=== PATIENT | female | born 1940 ===

== ENCOUNTER 2018-03-21 15:22 | Outpatient (CLI) | payer OTHER | END 2018-03-21 15:39 | disposition short-term general hospital (02) | LOC: AMBL 15:22 | PROVIDERS: ATTEND Internal Medicine | DX: R06.02 Shortness of breath (principal); R05 Cough; R09.89 Other specified symptoms and signs involving the circulatory and respiratory systems; R11.0 Nausea; F41.9 Anxiety disorder, unspecified; I44.7 Left bundle-branch block, unspecified ==

== ENCOUNTER 2018-06-01 07:56 | Outpatient (CLI) | END 2018-06-01 08:08 | disposition short-term general hospital (02) | LOC: AMBL 07:56 | PROVIDERS: ATTEND Family Medicine | DX: R41.82 Altered mental status, unspecified (principal) ==

== ENCOUNTER 2018-06-12 14:55 | Outpatient (CLI) | payer OTHER | END 2018-06-12 15:08 | disposition short-term general hospital (02) | LOC: AMBL 14:55 | PROVIDERS: ATTEND Emergency Medicine | DX: R45.6 Violent behavior (principal) ==

== ENCOUNTER 2018-07-13 12:56 | Outpatient (CLI) | payer OTHER | END 2018-07-13 13:18 | disposition short-term general hospital (02) | LOC: AMBL 12:56 | PROVIDERS: ATTEND Emergency Medicine | DX: R40.4 Transient alteration of awareness (principal); R60.0 Localized edema ==

== ENCOUNTER 2018-07-22 18:48 | Outpatient (CLI) | END 2018-07-22 19:05 | disposition short-term general hospital (02) | LOC: AMBL 18:48 | PROVIDERS: ATTEND Internal Medicine | DX: R07.9 Chest pain, unspecified (principal) ==

== ENCOUNTER 2018-07-29 11:00 | Outpatient (CLI) | payer OTHER | END 2018-07-29 11:22 | disposition short-term general hospital (02) | LOC: AMBL 11:00 | PROVIDERS: ATTEND Emergency Medicine | DX: R41.82 Altered mental status, unspecified (principal); R40.4 Transient alteration of awareness; I25.2 Old myocardial infarction; Z86.73 Personal history of transient ischemic attack (TIA), and cerebral infarction without residual deficits ==

== ENCOUNTER 2018-08-14 17:28 | Outpatient (CLI) | END 2018-08-14 17:49 | disposition short-term general hospital (02) | LOC: AMBL 17:28 | PROVIDERS: ATTEND Emergency Medicine | DX: S09.93XA Unspecified injury of face, initial encounter (principal); S00.31XA Abrasion of nose, initial encounter; S00.33XA Contusion of nose, initial encounter; W19.XXXA Unspecified fall, initial encounter ==

== ENCOUNTER 2018-10-26 10:00 | Outpatient (RCR) | payer OTHER ==
[2018-09-05 02:23] VITALS: BMI 21.4
--- NOTE | 2018-10-23 08:48 | RS.OPPTEV2 ---
Date of Note: 10/22/18 Visit #: 1 Number of visits approved by Insurance: n/a Date of Evaluation: 10/22/18 Payer Source: MEDICARE Surgery Performed?: No Treatment Diagnosis: gait difficulty, balance impaired, muscle weakness History of Condition/Mechanism of Injury:: pt recently dc from [facility] for rehab as well as received home health PT and was dc from home health last week. Prior Level of Function.....Patient was independent with: Ambulation/Mobility Level of Function: pt has had 24 hour caregivers since 02/2018. pt required assist with ADL's and supervision for amb prior to recent sn[facility] stay. Functional Limitations: Standing, Bending, Squatting, Ambulation, Community Access/Integration Current Subjective/complaints:: pt's caregiver states that pt requires assist with bathing and supervision with amb. Reports pt has not had a recent fall. Treatment Side (optional): N/A *Precautions: fall precautions Medical History Medical History: Hypertension Surgical History: Cholecystectomy, CABG Hx Home Medications: aspirin, atorvastatin, bisacodyl, clopidogrel, dicyclomine , donepezil, ferrous sulfate, furosemide, haloperidol, lisinopril, lorazepam, memantine, metoprolol tartrate, mirtazapine, nitroglycerin, omeprazole, potassium, quetiapine, revastigmine, sucralfate, trazodone, vit d Patient's Goals: be stronger Functional Outcome Measure Tinetti: 11 - G Codes & Severity Modifier G Codes & Modifier: n/a Source of G Code score: n/a Observation - Observation Inspection: pt with swelling L hand as well as L hand cool to touch. Arthritic deformities B hands. Pitting edema BLE Posture: Forward Head, Rounded Shoulders, Increased Thoracic Kyphosis Handedness: Right Gait - Gait Pattern General Gait Pattern Observation: Crouched Gait, Shuffling Step, Decrease Stride Lngth (R), Decrease Stride Lngth (L) Gait Comments: pt amb with rollator rwx with flexed posture, decreased step length as well as occasional shuffling gait. pt requires CGA to min to sit to stand from chair General Range of Motion: RUE WFL's, LUE shld flex limited otherwise WFL's. BLE WFL's Muscle Strength: RUE grossly 4/5, LUE shld flex 3-/5, elbow flex/ext 4/5. BLE hip flex 4-/5, knee flex/ext 4/5, ankle DF/PF 4/5 Sensation - Sensation Right Upper Extremity: Intact/Normal Left Upper Extremity: Intact/Normal Right Lower Extremity: Intact/Normal Left Lower Extremity: Intact/Normal Balance - Sitting Balance Static Sitting Balance: Good Dynamic Sitting Balance: Good - Standing Balance Static Standing Balance: Poor Dynamic Standing Balance: Poor - Comments Balance Assessment Comments: Tinetti balance score 01/24 consistent with high risk of falls. Gait speed: 0.46 consistent with limited community ambulator Interventions - Exercise/Activities/Manual Therapy Exercises/Activities: pt performed : isometric hip add, bridging, resisted hip abd with green theraband, Ankle DF/PF with green theraband, LAQ, scapular retraction w green theraband Manual Therapy: n/a HOME EXERCISE PROGRAM: pt given written HEP including: DF/PF w green theraband, resisted hip abd w green theraband, isometric hip add, scapular retraction w green theraband - Charges Timed Code Treatment Minutes: 51 Total Treatment Time: 57 Procedures billed for this date of service:: fern low, ex EVALUATION COMPLEXITY LEVEL EVALUATION COMPLEXITY LEVEL: HISTORY: Low, EXAM OF BODY SYSTEMS: Low, CLINICAL PRESENTATION: Low, CLINICAL DECISION MAKING: Low Assessment Assessment: pt presents with decreased strength, balance as well as gait difficulty. pt presents with cognitive deficits alert and oriented to person and place. Feel pt would benefit from skilled PT for therex for strengthening, balance as well as gait training to improve functional mobility and decrease risk of falls. Patient Education: Home Exercise Program, Education of Plan of Care Rehab Potential: Good Short Term Goals Goal #1: pt/caregiver independent with initial HEP Goal to be met by: 11/09/18 Goal #2: pt transfer sit to/from stand from chair SBA Goal to be met by: 11/09/18 Goal #3: Improve dyn stand balance as noted by tinetti score of Goal to be met by: 11/09/18 Goal #4: pt amb with rollator rwx with no LOB with improved posture. Goal to be met by: 11/09/18 [facility] Goals Goal #1: Improved gait speed 0.8 meters/sec to be consistent w community ambulator Goal to be met by: 11/30/18 Goal #2: Improved dyn stand balance as noted by tinetti score Goal to be met by: 11/30/18 Goal #3: Improve BLE strength 4 to 4+/5 Goal to be met by: 11/30/18 Goal #4: pt able to amb community distances w rollator w no LOB SBA Goal to be met by: 11/30/18 Plan - Treatment to be Provided Procedures: Therapeutic Exercises, Therapeutic Activity, Gait Training, Patient Education Modalities: No Modalities - Treatment Plan Frequency: 2-3x a week Duration: 6 weeks Dates of Electrophysiology Scientist Goals: 11/30/18 Expiration date of current Insurance Approval:: n/a - Treatment Code (1) Impairment of balance Code(s): R26.89 - OTHER ABNORMALITIES OF GAIT AND MOBILITY (2) Gait difficulty Code(s): R26.9 - UNSPECIFIED ABNORMALITIES OF GAIT AND MOBILITY (3) Muscle weakness Code(s): M62.81 - MUSCLE WEAKNESS (GENERALIZED)
--- NOTE | 2018-10-26 09:33 | RS.OPPTDN ---
Subjective Date of Note: 10/24/18 Visit #: 2 Number of visits approved by Insurance: Reassess at 10 Date of Evaluation: 10/22/18 Payer Source: MEDICARE Treatment Diagnosis: gait difficulty, balance impaired, muscle weakness Current Subjective/complaints:: Patient says her makes sure she walks several times per day at [employer] with her caregivers. She says she is unable to find HEP, but caregiver informs her of where it is in her apt. States her arms are hurting and c/o swelling to the L hand more so than L. States she has trouble standing for very long or reaching up. *Precautions: fall precautions Interventions - Exercise/Activities/Manual Therapy Exercises/Activities: Patient sits to begin general bal and strengthening activities. EOB with instruction of placing rollator brakes on and coming as close to surface (bed) as possible before transferring. She performs: shoulder shrugs, scap adduction x 5, rhythmic stabilization ant/post/lateral with arms crossed over chest x 3 with L lateral rotation being weakest. Bilateral UE reach for ball and crossing midline and diagonals as well as challenging anterior/posterior bal x 8. Toe/heel tapping alternately changing in speed based on prompts x 10. Patient required min A and physical cues for sit to supine with repositioning often. Supine: QS, SAQ 1# (2x10), DF with green tband, hooklying--ball squeezes, hip abd with green tband, bridging (2x5) , trunk rotation using ball between knees with green tband all x 10 reps. SAQ 1 # bilaterally using ball between ankles x 10. 1# wand for chest presses and overhead flexion x 8. Sitting EOB: LAQ 1# ea, hip flexion alternating for trunk bal 1# ea x 10. Scap retraction with yellow tband over 1# wand x 10. Standing at railing: Stepping forward and side stepping over weights placed on the floor. Repeated cues for accuracy. Assisted pt to caregiver's car using "handy handle" for machine try out setter to transfer into car. Caregiver instructed on use and where to purchase should pt choose to have one. Provided another handout for HEP. Total minutes of Exercise: 57 Manual Therapy: n/a HOME EXERCISE PROGRAM: pt given written HEP including: DF/PF w green theraband, resisted hip abd w green theraband, isometric hip add, scapular retraction w green theraband - Charges Timed Code Treatment Minutes: 57 Total Treatment Time: 57 Procedures billed for this date of service:: neuro1, ex2, TA Assessment: Patient requires frequent cueing and instruction on transferring safely, using brakes on rollator, and assistance with bed mobility. She is able and eager to perform general strengthening to assist her with gait. She enjoys daily walking at [employer] with her caregivers and her checks on her and documents her activity daily. She should benefit from continued bal and strengthening exercises to prevent falls and become safer with her rollator. Patient Education: Education of diagnosis, Body/Joint mechanics, Home Exercise Program, Home Safety, Education of Plan of Care Patient demonstrates compliance with HEP?: Yes Short Term Goals Goal #1: pt/caregiver independent with initial HEP Goal to be met by: 11/09/18 Progress towards Goal:: Progressing Goal #2: pt transfer sit to/from stand from chair SBA Goal to be met by: 11/09/18 Goal #3: Improve dyn stand balance as noted by tinetti score of Goal to be met by: 11/09/18 Goal #4: pt amb with rollator rwx with no LOB with improved posture. Goal to be met by: 11/09/18 [facility] Goals Goal #1: Improved gait speed 0.8 meters/sec to be consistent w community ambulator Goal to be met by: 11/30/18 Goal #2: Improved dyn stand balance as noted by tinetti score Goal to be met by: 11/30/18 Goal #3: Improve BLE strength 4 to 4+/5 Goal to be met by: 11/30/18 Goal #4: pt able to amb community distances w rollator w no LOB SBA Goal to be met by: 11/30/18 Plan Dates of Transition Of Care Specialist Goals: 11/30/18 Expiration date of current Insurance Approval:: 11/30/18 PLAN: Patient to continue 2-3 x per week to achieve goals of strength, safety, and bal with gait.
--- NOTE | 2018-10-26 15:47 | RS.OPPTDN ---
Subjective Date of Note: 10/26/18 Visit #: 3 Number of visits approved by Insurance: na Date of Evaluation: 10/22/18 Payer Source: MEDICARE Treatment Diagnosis: gait difficulty, balance impaired, muscle weakness Current Subjective/complaints:: Patient reports she did well after last session. *Precautions: fall precautions Interventions - Exercise/Activities/Manual Therapy Exercises/Activities: In sitting, wand for shoulder flexion, yellow tband resisted retraction, ball bilateral shoulder flexion and diagonals. Isometric hip add with ball. 1 1/2# to each ankle for SAQ and hip flexion. Ankle pumps and alt tapping. In supine: QS, SAQ 1 1/2#, alt hip flexion 1 1/2#. Resisted DF and ham curl with yellow tband. Hooklying ball squeezes, hip abd and add with yellow tband, bridging. Trunk rotation using ball between knees. Isometric ankle inversion with ball. 1# wand for chest presses and overhead flexion. Standing at railing: Stepping forward and side stepping. Marching, toe-ups, and alt hip abd. Patient education of safety with daily activities and review of HEP. Cues for technique and safety with ambulation, transfers, and sit to stand. Total minutes of Exercise: EX 35mins, NEURO 14mins Manual Therapy: n/a HOME EXERCISE PROGRAM: pt given written HEP including: DF/PF w green theraband, resisted hip abd w green theraband, isometric hip add, scapular retraction w green theraband - Charges Timed Code Treatment Minutes: 49mins Total Treatment Time: 52mins Procedures billed for this date of service:: EX2, NEURO Assessment: Patient attentive to instruction and safety cues. She is motivated to progress and discharge use of rollator. Patient Education: Home Exercise Program, Home Safety, Activity Modification Patient demonstrates compliance with HEP?: Yes Short Term Goals Goal #1: pt/caregiver independent with initial HEP Goal to be met by: 11/09/18 Progress towards Goal:: Progressing Goal #2: pt transfer sit to/from stand from chair SBA Goal to be met by: 11/09/18 Progress towards Goal:: Progressing Goal #3: Improve dyn stand balance as noted by tinetti score of Goal to be met by: 11/09/18 Goal #4: pt amb with rollator rwx with no LOB with improved posture. Goal to be met by: 11/09/18 Welder Machine Operator Goals Goal #1: Improved gait speed 0.8 meters/sec to be consistent w community ambulator Goal to be met by: 11/30/18 Goal #2: Improved dyn stand balance as noted by tinetti score Goal to be met by: 11/30/18 Goal #3: Improve BLE strength 4 to 4+/5 Goal to be met by: 11/30/18 Goal #4: pt able to amb community distances w rollator w no LOB SBA Goal to be met by: 11/30/18 Plan Dates of Alf Goals: 11/30/18 Expiration date of current Insurance Approval:: 11/30/18 PLAN: Progress with exercise and balance work to increase safety and independence with all functional activities.
== END 2018-10-27 23:59 ==
PROVIDERS: ATTEND Family Medicine
DX: R41.82 Altered mental status, unspecified (principal); R26.9 Unspecified abnormalities of gait and mobility; R54 Age-related physical debility